=== PATIENT | female | born 1955 | race Caucasian/White ===

== ENCOUNTER → 2017-01-31 | Outpatient (CLI) | payer OTHER, MEDICAID | LOC: BMCIMAGING 12:52 | PROVIDERS: ATTEND Physician Assistant Medical | DX: R07.89 Other chest pain (principal) ==

== ENCOUNTER → 2017-02-06 | Outpatient (CLI) | payer OTHER, MEDICAID | LOC: FIMAGING 12:39 | DX: Z12.31 Encounter for screening mammogram for malignant neoplasm of breast (principal); Z80.3 Family history of malignant neoplasm of breast | CPT/HCPCS: G0202 ==

== ENCOUNTER → 2017-04-12 | Outpatient (CLI) | payer OTHER, MEDICAID | LOC: BMCIMAGING 11:11 | PROVIDERS: ATTEND Internal Medicine | DX: Z13.820 Encounter for screening for osteoporosis (principal); M85.80 Other specified disorders of bone density and structure, unspecified site ==

== ENCOUNTER → 2017-07-30 | Outpatient (CLI) | payer OTHER, MEDICAID ==
--- NOTE | 2017-07-30 10:54 | NOWCEV ---
[facility] EVALUATION AND LETTER OF JUSTIFICATION Patient Name: JESSICA GUTIÉRREZ Physician: Julián Omer MD Eval Date: 07/30/17 Therapist: Daphney Bliss PT,MSPT Date of : 1955 MR#: [id number] Contact: Jessica Gutiérrez Subscriber: JESSICA GUTIÉRREZ Primary Ins: MEDICARE OUTPATIENT Subscriber #: [id number] EVALUATION FINDINGS Medical history - Jessica is a 62y/o female who experienced her first miocardial infarction (WV) in April 2005. Then in December of 2005 she reports having 2 additional WV and a CVA. 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 More recently Jessica has had multiple TIAs and has been in and out of the hospital multiple times due to cardiac issues. Jessica has used her PWC for household mobility for 10 years. Her current PWC is in deteriorating from daily use. She was referred to this clinic to have recommendations made for the most medically appropriate PWC to meet her needs for household mobility. 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 She utilizes her current PWC to access MRADLs in her home, including distances between the bedroom, bathroom, and kitchen. She also utilizes her PWC to access medical appointments and to fill her prescriptions at the drug store across the street from her home. Jessica is able to intermittently ambulate household distances with use of a rollator walker in the mornings prior to fatigue, but she she is at high risk for falling. In standing her knees with intermittently buckle, and she experienced unpredictable dizzy spells which cause her to fall. When she does ambulate, she walks with a narrow base of support, and B knees are in 30degress of flexion due to her OA. Jessica is independent with stand pivot/ step transfer to/from her PWC with UE support from her wheelchair arm rests. She is independent with bed mobility. Motor involvement - Jessica has significant restriction in B LEs. Her knee extension is limited to -30degrees on the L and -25degrees on the R, and knee flexion is limited to 90degrees B. She has significant pain and hypersensitivity in her knees with gait and standing. MMT is as follows: DF: 4- /5 B, knee extension: 4-/5 B but testing limited due to pain, hip flexion: 4-/5 B, hip abduction: 3/5 B, shoulder abduction and flexion: 3+ to 4-/5 B but testing limited by pain in shoulder with resistance, elbow flexion: 4/5 B, elbow extension: 4-/5 B. Posture - Jessica sit with a level pelvis and shoulders. Skin Sensation - Jessica has no history of skin breakdown and is continent of bowel and bladder. She does have hypersensitivity to light touch at B knees. Endurance - Jessica has poor endurance. She has to closely monitor her oxygen saturation, and utilizes supplemental oxygen when her number drop below 92% on room air. She reports her energy level declines as the day progresses. During physical therapy sessions Jessica has been able to ambulate a maximum distance of 200' with a rollator walker, but she requires monitoring of her vitals, CTG to occasional min A when her knees buckle and a wheelchair follow. Her ability to ambulate as distance inconsistent, as she frequently becomes dizzy or light headed when standing and has to requrn to sitting immediate to prevent from falling. ADLs - Jessica is modified independent to complete all ADLs. She completes all activities such as meal prep, dressing, and washing up from a wheelchair level. She access the bedroom, bathroom, and kitchen in her home with her current PWC. Cognitive/Social - Jessica lives alone in a single level, wheelchair accessible apartment. She has not been able to work since her MIs and CVA. She is cognizant and able to make her own medical decisions. Current wheelchair - Jessica has been utilizing a [employer] for all household and community mobility for the past 10 years. Her current chair is deteriorating from continuous daily use. The seat is torn and being held together with tape. The plastic cover on the chair's base is cracked in multiple places. She arm rests are torn and now slope downward as the locking mechanism is broken. She tires on the chair are bare of tread, and the patient reports that he battery life on the chair has declined significantly. MEDICAL and FUNCTIONAL NEED/OBJECTIVES * To replace Jessica's current PWC which is showing age related deterioration to allow her to continue to perform MRADLs safely and independently within the home. PRIMARY FUNCTIONAL LIMITATION (G Code) * Mobility CURRENT STATUS OF PRIMARY FUNCTIONAL LIMITATION (Severity Modifier) * At least 60 percent but less than 80 percent impaired, limited or restricted ( CL) GOAL STATUS OF PRIMARY FUNCTIONAL LIMITATION (Severity Modifier) * At least 60 percent but less than 80 percent impaired, limited or restricted ( CL) DISCHARGE STATUS OF PRIMARY FUNCTIONAL LIMITATION (Severity Modifier) * At least 60 percent but less than 80 percent impaired, limited or restricted ( CL) EQUIPMENT RECOMMENDATIONS AND JUSTIFICATIONS The following recommendations are believed to be the most cost effective way to meet the patients medical and functional needs. * Group 2 power base- [employer] 600 ES: Needed to replace Jessica's current PWC which is 10 years old and showing age related deterioration. Jessica cannot consistently ambulate, even with an AD as she is a high fall risk when her knees buckle and when she experiences unpredictable dizzy spells what cause her to fall. A MWC, even a light weight model, is not appropriate due to Jessica's poor endurance due to her cardiac status and history of multiple WV. Self propulsion could place increase stress on her heart and place her at risk for further cardiac complication. A scooter in not appropriate as Jessica cannot safely transfer on/off of a platform, and the footprint of a scooter is too large to fit in her home. A PWC will provide Jessica with safe and consistent access to MRADLs in home home, including moving between the bedroom, kitchen and bathroom without placing her at risk for fall or exacerbating her cardiac conditions. * Height adjustable arm rests: The elevated height is needed so Jessica can push off arms rests to complete transfers. * Retractable joystick: Needed to allow joystick to be pushed out of the way to allow Jessica to pull closely up to surfaces, and so that it does not interfere with transfers. * Batteries: Needed to provide the chair with power to allow Jessica to drive her PWC in the home to access MRADLs. * Safety flag: Needed so that Jessica can be seen to allow her to safely cross the street in her PWC when picking up prescriptions from the drug store across from her home and when attending medical appointments. These recommendations are based on the likelihood that Jessica will require the use of a wheelchair for mobility for the rest of her life. If you have any questions or concerns regarding the stated recommendations, please feel free to contact the therapist at . Thank you for your cooperation in obtaining the necessary equipment for this patient. Daphney Bliss, TAYT POPPY
== END ==
PROVIDERS: ATTEND Orthopaedic Surgery
DX: Z46.89 Encounter for fitting and adjustment of other specified devices (principal); I42.9 Cardiomyopathy, unspecified; I50.9 Heart failure, unspecified; I11.0 Hypertensive heart disease with heart failure; G40.919 Epilepsy, unspecified, intractable, without status epilepticus; R42 Dizziness and giddiness
CPT/HCPCS: 97162; G8978; G8979; G8980

== ENCOUNTER → 2018-01-06 | Outpatient (CLI) | payer OTHER, MEDICAID | LOC: BMCIMAGING 08:48 | PROVIDERS: ATTEND Internal Medicine | DX: K80.20 Calculus of gallbladder without cholecystitis without obstruction (principal); E80.7 Disorder of bilirubin metabolism, unspecified; I70.0 Atherosclerosis of aorta ==